=== PATIENT | male | born 1955 | race Caucasian/White ===

== ENCOUNTER → 2016-11-23 | Outpatient (CLI) | payer BC | LOC: FIMAGING 12:05 | PROVIDERS: ATTEND Internal Medicine Hematology & Oncology | DX: C79.51 Secondary malignant neoplasm of bone (principal); C61 Malignant neoplasm of prostate; M47.898 Other spondylosis, sacral and sacrococcygeal region | CPT/HCPCS: A9503 ==

== ENCOUNTER → 2017-06-22 | Outpatient (CLI) | payer BC | LOC: BMCIMAGING 10:19 | PROVIDERS: ATTEND Internal Medicine Hematology & Oncology | DX: Z13.820 Encounter for screening for osteoporosis (principal); M85.89 Other specified disorders of bone density and structure, multiple sites; C79.51 Secondary malignant neoplasm of bone; C61 Malignant neoplasm of prostate; Z79.890 Hormone replacement therapy ==